=== PATIENT | male | born 1940 | race Caucasian/White ===

== ENCOUNTER 2016-11-05 09:06 | Observation (INO) | payer OTHER ==
[2016-11-05 09:26] LABS: BASOPHILS % 0.4 (0.0-1.5); EOSINOPHILS % 1.6 % (0.0-6.8); MEAN CORPUSCULAR HEMOGLOBIN 31.6 pg (28.0-34.0); MEAN CORPUSCULAR VOLUME 92.2 fl (80.0-100.0); MONOCYTES % 5.4 % (0.0-11.0); NEUTROPHILS # 4.4 # k/uL (1.4-7.7)
[2016-11-05 09:47] LABS: eGFR (African) > 60; eGFR (Non-African) > 60
--- NOTE | 2016-11-05 10:12 | ED Physician Documentation ---
Chest Pain - HISTORIAN Historian: patient - HPI Chief Complaint: Chest Pain Timing: sudden onset Last known Well Date: 11/05/16 Last Known Well Time: 09:14 Last known Well Code/Unknown Code: Known Context: rest Severity: moderate Further Comments: yes (patient states that he is been having some intermittent chest pain over the last two days.On Friday evening patient awoke with some epigastric substernal chest pain described have a burning sensation. Patient denied any radiation. Patient denies Ms. shortness of breath diaphoresis associated with her. Pain was approximately 6/10. Patient states that the pain lasted for approximately 3 to 4 minutes. Did not seem to be any bologna maker modifying factors noted. Patient is continue to have some intermittent chest pain since at time. Patient states that he had five episodes of mild chest pain yesterday that lasted approximately 1 to 2 minutes. Not sure if it's associated with eating or not. Patient denies any other precipitating or modifying factors. Just prior to admission to the ED patient had some mild chest pain that lasted left one minute. Patient denies any hypercholesterolemia, diabetes, or significant family history of coronary artery disease.) - ROS CONST: none. denies: fever, recent injury, chills NEURO/PSYCH: none - PAST HX MT risk factors: hypertension. denies: diabetes Type 2 DVT/PE Risk Factors: none. denies: recent surgery, leg swelling, bedridden Neuro deficit: none GI disease: denies: GERD, peptic ulcer, GI bleed, pancreatitis Allergies/Adverse Reactions: Allergies Allergy/AdvReac Type Severity Reaction Status Date / Time No Known Allergies Allergy Unverified 11/05/16 10:17 Home Medications: Ambulatory Orders Medication Instructions Recorded Losartan Potassium [Cozaar] 100 mg PO DAILY 11/05/16 - SOCIAL HX Smoking History: non-smoker, quit greater than 1 year (quit 50 yrs ago) Alcohol Use: rarely Drug Use: none - FAMILY HX Family HX: none - VITAL SIGNS Vital Signs: Vital Signs Temp Pulse Resp BP Pulse Ox 131/90 06/05/15 11:21 - REVIEWED ASSESSMENTS Nursing Assessment Reviewed: Yes Vitals Reviewed: Yes Progress - Progress Progress: 09:51 Patient remains pain free at this time. 10:48 Patient remains pain free, labs are OK - EKG/XRAY/CT EKG: NSR Comments: 1st degree block ED Results Lab/Radiology - Radiology Radiology Impressions: Chest x-ray: WNL - Orders Orders: ED Orders Category Date Time Status Continuous EKG monitoring Q30M Care 11/05/16 09:12 Ordered Continuous Pulse Oximetry Q30M Care 11/05/16 09:12 Ordered CHEST P.A.&LAT 2 VIEWS [RAD] Stat Exams 11/05/16 Ordered CBC/PLATELET/DIFF Routine Lab 11/05/16 09:12 Ordered CMP Routine Lab 11/05/16 09:12 Ordered TROPONIN I (cTnI) Stat Lab 11/05/16 09:12 Ordered Oxygen Daily Oxygen 11/05/16 09:15 Ordered EKG WITH COMPARISON Stat Ther 11/05/16 09:12 Ordered Chest Pain Physical Exam - EXAM General Appearance: no acute distress, alert EENT: pharynx normal, no signs of dehydration Neck: nml inspection. No: JVD present, lymphadenopathy, subcutaneous emphysema Respiratory: no resp. distress, chest non-tender, nml breath sounds CVS: reg. rate & rhythm, no murmur, no gallop, no friction rub, pulses full, pulses equal Abdomen: soft, no organomegaly, normal bowel sounds, no abdominal bruit, no distension, tenderness (mild epigastric area) Skin: warm/dry, normal color Extremities: non-tender Neuro: oriented X3, CN's nml as tested, motor nml, sensation nml, mood/affect nml (is) Discharge Clincal Impression: Chest pain Home Medications: Ambulatory Orders Losartan Potassium [Cozaar] 100 mg PO DAILY 11/05/16 Condition: Stable Disposition: 01 HOME, SELF-CARE Decision to Admit: [id number] Date of Decison to Admit: 11/05/16 Decision Time: 11:00
[2016-11-05] MEDS ORDERED: PANTOPRAZOLE SODIUM 40 MG TABLET PO ONE (12:02)
[2016-11-05 13:49] VITALS: BMI 34.2
--- NOTE | 2016-11-05 13:51 | Diagnostic Imaging Report ---
DAYA MONTOYA [facility] [address] [facility].[address] [address] Report Submission Date: Nov 05, 2016 10:10:39 AM CDT Patient Study Name: BETO HASSAN Date: Nov 05, 2016 9:19:14 AM CDT Modality Type: CR Gender: M Description: CHEST : 38 Institution: [facility] Physician: DAYA MONTOYA Chest -two views CLINICAL HISTORY: Chest pain and heartburn for 2 days. FINDINGS: Examination of the chest in PA and lateral views with no prior film for comparison demonstrates lungs to be clear. Cardiac silhouette is within normal limits and the aorta is atherosclerotic. Degenerative changes are seen in the thoracic vertebrae. IMPRESSION: Aortic atherosclerosis. No active disease. Electronically signed on Nov 05, 2016 10:10:39 AM CDT by: Dave PRIETO
--- NOTE | 2016-11-05 14:01 | History and Physical Report ---
History of Present Illnes - History of Present Illness Reason for Visit: chest pain History of Present Illness: 76-year-old white male who is comes into the ED complaining of chest pain. Patient stated he had a severe episode of chest pain Friday that lasted for 15 to 20 minutes. Patient denies any precipitating cause. Patient denies any that modified the pain. Patient states that since at time he has had five episodes of some mild chest pain on Friday and then another episode this a.m. Patient states that the episodes have been laughing for 3 to 5 minutes. I can does not notice any precipitating or modifying factors. Patient denies any previous history of coronary artery disease. Patient does have a history of hypertension. Patient did smoker quit smoking approximately 15 years ago. Patient does not have elevated cholesterol that he is aware. Patient denies any shortness of breath or diaphoresis associated with the chest pain. Patient describes the pain as being in the substernal area as an intense speaking with a slight burning component to it. Patient was subsequently seen in the ED and evaluated for possible coronary artery disease. Patient EKG did not show any acute ischemic changes and labs came back within normal range. Patient was subsequently admitted to the hospital observation to rule out possible unstable angina and to have a cardiac consultation. - Past Medical History Cardiac: HTN. denies: CAD, CHF Pulmonary: denies: Asthma Gastrointestinal: denies: GERD, GI bleed, Gastritis - Past Surgical History Past Surgical History: Other (skin cancer removed) - Past Social History Smoke: Quit (over 50 years ago) Occupation: retired Alcohol: None Drugs: None Lives: With Family Domestic Violence: Negative - Health Maintenance Health Maintenance: Cholesterol, Influenza Vaccine, Pneumococcal Vaccine Pneumonia Vaccine: Yes Resuscitation Status: Resusciation Status Resuscitation Status Full Code - Unable to Obtain History Unable to Obtain: No Review of Systems - Review of Systems Constitutional: negative: Fever, Chills, Sweats, Weakness Eyes: negative: vision change ENT: negative: Ear Pain, Ear Discharge, Nose Pain, Nose Discharge, Nose Congestion, Mouth Pain, Mouth Swelling, Throat Pain, Throat Swelling Respiratory: negative: Cough, Dry, Shortness of Breath, Hemoptysis, SOB with Excertion, Pleuritic Pain Cardiovascular: Chest Pain. negative: Palpitations, Orthopnea, Light Headedness Gastrointestinal: negative: Nausea, Vomiting, Abdominal Pain, Diarrhea, Constipation, Melena, Hematochezia Genitourinary: negative: Dysuria, Frequency Musculoskeletal: negative: Neck Pain, Shoulder Pain, Back Pain Skin: negative: Rash Neurological: negative: Weakness, Numbness, Incoordination, Change in Speech - Medications/Allergies Allergies/Adverse Reactions: Allergies Allergy/AdvReac Type Severity Reaction Status Date / Time No Known Allergies Allergy Unverified 11/05/16 10:17 Home Medications: Home Medications Losartan Potassium [Cozaar] 100 mg PO DAILY 11/05/16 Current Inpatient Medications: Current Inpatient Medications Pantoprazole Sodium (Protonix) 40 mg PO NOW ONE Stop: 11/05/16 12:03 Last Admin: 11/05/16 12:54 Dose: 40 mg Sodium Chloride (Normal Saline Flush) 3 ml IV BID KIEL Exam - Exam Vital Signs: Vital Signs (72 hours) 11/05/16 11/05/16 11/05/16 11:30 11:44 12:00 Temperature 97.4 F L Pulse Rate 67 62 Pulse Rate [ 64 62 Pulse ox] Respiratory 16 18 Rate Blood Pressure 169/94 181/99 [Left Arm] O2 Sat by Pulse 99 98 Oximetry 11/05/16 11/05/16 11/05/16 12:30 13:00 13:30 Temperature Pulse Rate 68 64 64 Pulse Rate [ Pulse ox] Respiratory Rate Blood Pressure [Left Arm] O2 Sat by Pulse Oximetry General: Alert, Oriented to Person (Will will), Oriented to Place, Oriented to Time, Cooperative HEENT: Atraumatic, Mouth Mucous membr. moist/[place], Nose Mucous membr. moist/[place] , Dentition Normal, Hearing Grossly Normal Neck: Normal Range of Motion. No: Stridor, Rigidity, Lymphadenopathy Carotids: WNL Thyroid: WNL Lungs: Clear to auscultation, Normal air movement, Speaks full Sentences, Respiratory Distress. No: Wheezes, Rales, Rhonchi Cardiovascular: Regular rate, Normal S1, Normal S2, No murmurs Abdomen: Normal bowel sounds, Soft, No tenderness, No hepatospenomegaly, No masses. No: Distended Integumentary: Normal, [place], Warm, Dry Extremities: No clubbing, No cyanosis, No edema, Normal pulses Neurological: Normal speech, Sensation intact, Cranial nerves 3-12 NL Psych/Mental Status: Mental status NL, Mood NL - Laboratory Results Laboratory Results: Laboratory Results 11/05/16 13:00 Troponin I < 0.03 L Assessment/Plan - Assessment/Plan (1) Chest pain Status: Acute Current Visit: Yes Qualifiers: Chest pain type: unspecified Qualified Code(s): R07.9 - Chest pain, unspecified Assessment: Suspect that chest pain is related to gastric origin but cardiac is certainly a possibility. Patiet will probably need a stress test done. Will get a cardiac consultation. Will start PPI. (2) Essential hypertension Status: Acute Current Visit: Yes Assessment: BP has been elevated in the ED but has decreased without any intervention. Will continue with home meds. VTE Assessment - RISK FACTOR SCORE VTE RISK FACTOR SCORES: AGE OVER 60 YEARS - RISK VTE LOW RISK: SCORE OF 1 OR LESS (RISK PROXIMAL DVT 0.4%) NO PROPHYLAXIS NEEDED
[2016-11-05] MEDS ORDERED: LOSARTAN POTASSIUM 50 MG TABLET PO SCH (15:00)
[2016-11-05 19:41] VITALS: BP 143/86
[2016-11-05] MEDS ORDERED: SALINE FLUSH 10 ML DISP.SYRIN IV SCH (21:00)
--- NOTE | 2016-11-13 09:18 | Discharge Summary ---
Discharge Summary - Discharge Sumary History of Present Illness: 76-year-old white male who is comes into the ED complaining of chest pain. Patient stated he had a severe episode of chest pain Friday that lasted for 15 to 20 minutes. Patient denies any precipitating cause. Patient denies any that modified the pain. Patient states that since at time he has had five episodes of some mild chest pain on Friday and then another episode this a.m. Patient states that the episodes have been laughing for 3 to 5 minutes. I can does not notice any precipitating or modifying factors. Patient denies any previous history of coronary artery disease. Patient does have a history of hypertension. Patient did smoker quit smoking approximately 15 years ago. Patient does not have elevated cholesterol that he is aware. Patient denies any shortness of breath or diaphoresis associated with the chest pain. Patient describes the pain as being in the substernal area as an intense speaking with a slight burning component to it. Patient was subsequently seen in the ED and evaluated for possible coronary artery disease. Patient EKG did not show any acute ischemic changes and labs came back within normal range. Patient was subsequently admitted to the hospital observation to rule out possible unstable angina and to have a cardiac consultation. Condition at Discharge: Stable Home Medications: Ambulatory Orders Medication Instructions Recorded Aspirin [Aspir 81] 81 mg PO DAILY u2 11/27/16 Consultations this Visit: None Procedures this Visit: None Allergies/Adverse Reactions: Allergies Allergy/AdvReac Type Severity Reaction Status Date / Time No Known Allergies Allergy Unverified 11/05/16 10:17 Discharge Summary: Patient did well and remain pain-free through the observation course. Patient's troponin and cardiac enzymes remains stable. Patient EKG remains stable without any changes consistent with ischemia. Patient did not have any problems with ambulation or eating. It was felt that most likely the patient pain was related to gastric origin. Patient was advised to take a proton pump inhibitor and follow-up in my office. Patient was advised to watch for any blood in the stools. If you developed any nausea vomiting her hematemesis was advised to let me know. Patient was advised to watch for precipitating or modifying factors to the chest pain. - Final Diagnosis (1) Chest pain Problems: Believed to be gastric in origin. (2) Essential hypertension Problems: stable
== END 2016-11-05 19:41 | disposition home or self-care (01) ==
LOC: ED 09:06 → SOUTH 11:22
PROVIDERS: ADMIT Family Medicine; ATTEND Family Medicine
DX: R07.9 Chest pain, unspecified (principal); I10 Essential (primary) hypertension
CPT/HCPCS: 36415; 71020; 80053; 82150; 84484; 85025; 93005; G0378; 96374; 99284; S1016

== ENCOUNTER 2016-11-12 11:40 | Outpatient (CLI) | payer OTHER | END 2016-11-12 11:42 | LOC: CARD 11:40 | PROVIDERS: ATTEND Internal Medicine Cardiovascular Disease | DX: R07.9 Chest pain, unspecified (principal); E78.5 Hyperlipidemia, unspecified; I10 Essential (primary) hypertension | CPT/HCPCS: 99213 ==

== ENCOUNTER 2016-12-04 07:57 | Outpatient (CLI) | payer OTHER ==
--- NOTE | 2016-12-04 15:39 | Diagnostic Imaging Report ---
DAYA MONTOYA [facility] [address] [facility].[address] [address] Report Submission Date: Dec 04, 2016 11:12:22 AM CDT Patient Study Name: BETO HASSAN Date: Dec 04, 2016 9:49:34 AM CDT Modality Type: CT\SR Gender: M Description: CT ABD & PELVIS W/ CON : 38 Institution: [facility] Physician: DAYA MONTOYA CT abdomen and pelvis with contrast CLINICAL HISTORY: Epigastric pain. Contrast administered: 92 mL of Omnipaque. TECHNIQUE: CT of the abdomen and pelvis is performed with oral and intravenous administration of contrast. Sagittal and coronal reconstructions are performed by the technologist. FINDINGS: Visualized lung bases are clear. The liver and spleen demonstrate normal attenuation without focal defect. There are multiple calcified gallstones in the gallbladder. There is no pancreatic or adrenal abnormality. Left renal cysts are demonstrated. Kidneys otherwise demonstrate symmetric enhancement. Vascular calcification is present in the abdominal aorta without evidence of aneurysm. There is no retroperitoneal mass or significant adenopathy. The appendix is visualized and is within normal limits. Scattered diverticula are seen in the sigmoid colon without evidence of diverticulitis. Bladder is unremarkable. There is no free fluid in the pelvis or abdomen. Degenerative changes are seen in the thoracolumbar spine. Bilateral spondylolysis is evident at L5 with 5 mm anterolisthesis of L5 on S1. IMPRESSION: Cholelithiasis. Vascular calcification. Lumbar spondylosis with bilateral spondylolysis at L5 and grade 1 anterolisthesis at L5-S1. Left renal cysts. Negative appendix. Electronically signed on Dec 04, 2016 11:12:22 AM CDT by: Dave PRIETO
== END 2016-12-04 08:00 ==
LOC: RAD 07:57
PROVIDERS: ATTEND Family Medicine
DX: R10.13 Epigastric pain (principal)
CPT/HCPCS: 74177; Q9966; A9698

== ENCOUNTER 2016-12-10 14:27 | Outpatient (CLI) | payer OTHER | END 2016-12-10 14:52 | LOC: CARD 14:27 | PROVIDERS: ATTEND Internal Medicine Cardiovascular Disease | DX: R07.9 Chest pain, unspecified (principal); E78.5 Hyperlipidemia, unspecified; I10 Essential (primary) hypertension | CPT/HCPCS: 99213 ==

== ENCOUNTER 2016-12-11 08:48 | Outpatient (CLI) | payer OTHER ==
--- NOTE | 2016-12-11 14:40 | Diagnostic Imaging Report ---
DAYA MONTOYA [facility] [address] [facility].[address] [address] Report Submission Date: Dec 11, 2016 9:25:12 AM CDT Patient Study Name: BETO HASSAN Date: Dec 11, 2016 8:58:07 AM CDT Modality Type: US Gender: M Description: US ABD LIMITED : 38 Institution: [facility] Physician: DAYA MONTOYA Examination: Ultrasound gallbladder History: Gallstones Comparison exam: CT scan and dated 04 December 2016 Findings: Sonographic evaluation of the right upper quadrant demonstrates a gallbladder with numerous gallstones layering within the dependent margin of the gallbladder. Gallbladder wall measures 2.0 mm. Common bile duct not visualized. No intrahepatic biliary dilation. Liver demonstrates normal homogeneous echogenicity. No mass or cyst. Normal flow on color analysis. Normal Doppler waveforms. Right kidney measures 11.5 cm in length. No cortical mass or cyst. No hydronephrosis. Pancreatic region without gross irregularity. Impression: Gallstones. No gallbladder wall thickening. Common bile duct not visualized however no intrahepatic dilation. Correlate with patient's symptomatology. Electronically signed on Dec 11, 2016 9:25:12 AM CDT by: Desmond PRIETO
== END 2016-12-11 09:00 ==
LOC: RAD 08:48
PROVIDERS: ATTEND Family Medicine
DX: K80.20 Calculus of gallbladder without cholecystitis without obstruction (principal)
CPT/HCPCS: 76705

== ENCOUNTER 2017-11-26 14:24 | Outpatient (CLI) | payer OTHER ==
--- NOTE | 2017-11-27 16:52 | OP Clinic Progress Note ---
REASON FOR VISIT: This 77-year-old man is seen with one episode of disequilibrium a week or so ago after sitting up. It did not last particularly long. Patient also had left ear pressure and discomfort. He has been nicely treated with Sudafed, Mucinex, an antibiotic, Flonase and he says he also has taken an allergy pill. The patient walks with a shuffle. He does not particularly list to one side or the other. By otoscopy, he has a mild keratosis of the skin of the left ear canal. Both eardrums are clear and clean with no perforation and no fluids. The left eardrum appears to be somewhat stiffened and retracted. Additional history, the patient has had a stiff neck and generally a stiff spine. 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 Sometimes, stiff necks can cause some tensioning and pressure changes in the ear. The patient has declined physical therapy here in the hospital. He prefers to go back and see his chiropractor and I have recommended that he do so. If his symptoms improve, I would not necessarily need to see him again. He is given an open invitation to return at any time for reconsideration for placement of a tube in the left ear. PLAN: There is no blockage of cerumen of the left ear canal. He has a small amount of exudative change of the skin of the ear canal. I debrided and cleaned a significant portion of that in the clinic today. There is not a 100% clear etiology to all of Isreal's symptoms. Again, he appears to have mild Eustachian tube dysfunction and some degree of a tensioning of the eardrum that may or may not be related to what he feels is a fairly significant amount of cervical "arthritis." Again, I have emphasized that I would be happy to see him at any time his symptoms persist or worsen. cc: Dr. Dave PRIETO
== END 2017-11-26 14:26 ==
LOC: ENT 14:24
PROVIDERS: ATTEND Otolaryngology
DX: H60.92 Unspecified otitis externa, left ear (principal)
CPT/HCPCS: 69210; 99213

== ENCOUNTER 2018-09-14 10:04 | Day surgery (SDC) | payer OTHER ==
[~2018-09-14 10:04] MED LIST: LACTATED RINGERS 1,000 ML IV.SOLN IV ONE; LIDOCAINE HCL 2% PF 100MG/5ML VIAL IJ ONE; PROPOFOL 200 MG/20 ML VIAL IV ONE
--- NOTE | 2018-11-24 09:05 | GI Report ---
]DATE OF PROCEDURE: 09/14/2018 REFERRING PHYSICIAN: Eula Gomez NP. PROCEDURE PERFORMED: Colonoscopy. SURGEON: Fracisco Gaxiola M.D., [place] INDICATION FOR PROCEDURE: The patient is an 78-year-old man who has had a serrated adenoma in his cecum on the last colonoscopy. He has a number of other medical issues. His mother had colon surgery thinks she had a cancer. He comes for a follow-up evaluation. He denies any interval change in stool or bleeding. PROCEDURE MEDICATION: Propofol, as per Anesthesia. DESCRIPTION OF PROCEDURE: The [employer] video colonoscope was advanced in the rectum. He does have diverticular disease of the sigmoid, descending colon. Prep was just fair, we had to lavage many areas. Atonic, redundant colon. We were able to reach the cecum. At the base of the cecum there was a lot of residual stools so spent a lot of time suctioning and lavage. I could identify finally the appendiceal orifice. No obvious residual lesion there but prep was not perfect. On slow withdrawal, ascending colon and transverse colon, no intraluminal lesions noted. Descending colon and sigmoid: Some diverticular disease, no obvious intraluminal lesions noted. The rectum otherwise is normal. The patient tolerated the procedure well. FINDINGS: 1. Atonic redundant colon. 2. Diverticular disease in the sigmoid colon. 3. I saw no polyps at this time. 4. Previous history of serrated adenomas. RECOMMENDATIONS: 1. Continue high fiber diet. 2. Follow-up with Dr. Shafer and ARLIN Pierre. 3. Question at age 78 depending upon his health status whether one should have another colonoscopy or not in 5 years; I will leave that to his primary doctors depending upon his health status at that point. FRACISCO GAXIOLA M.D., Nico.Estefanía.Stef Parisi Job#: [id number] Cc: Dr. Hollis Schafer NP [facility] CENTERJacqueline
== END 2018-09-14 13:25 ==
LOC: OPSURG 10:04
PROVIDERS: ATTEND Internal Medicine Gastroenterology
DX: Z12.11 Encounter for screening for malignant neoplasm of colon (principal); Z86.010 Personal history of colon polyps
CPT/HCPCS: 45378; J2001; J2704; J7120